=== PATIENT | female | born 1985 ===

== ENCOUNTER 2016-10-03 21:27 | Emergency (ER) | payer SELFPAY ==
[2016-10-03 21:42] VITALS: RESP 20
--- NOTE | 2016-10-03 22:00 | C.PDOC ---
History Of Present Illness 31 year old patient, with a history of migraines, presents to the ED complaining of a sudden onset of a severe frontal headache tonight. Patient states the pain is radiating to her neck. She also complains of nausea, vomiting. She has not had a migraine in two years. This is worse than she's had previously. The light bothers her eyes. Patient denies dizziness, trauma, head injury, numbness or weakness. Time Seen by Provider: 10/03/16 21:46 Chief Complaint (Nursing): Headache History Per: Patient History/Exam Limitations: no limitations Onset/Duration Of Symptoms: Sudden Onset (tonight prior to arrival) Current Symptoms Are (Timing): Still Present Severity: Severe Pain Scale Rating Of: 7 Quality: "Pain" Preceeding Symptoms: Known Migraine Symptoms Associated Symptoms: Photophobia, Nausea, Vomiting Recent travel outside of the [place]: No Additional History Per: Family Past Medical History Reviewed: Historical Data, Nursing Documentation, Vital Signs Vital Signs: Last Vital Signs Temp 98.9 F 10/03/16 23:26 Pulse 74 10/03/16 23:26 Resp 20 10/03/16 23:26 BP 129/52 L 10/03/16 23:26 Pulse Ox 95 10/04/16 00:03 Family History: States: Unknown Family Hx - Social History Hx Alcohol Use: No Hx Substance Use: No - Immunization History Hx Tetanus Toxoid Vaccination: No Hx Influenza Vaccination: No Hx Pneumococcal Vaccination: No Review Of Systems Except As Marked, All Systems Reviewed And Found Negative. Cardiovascular: Positive for: Light Headedness Gastrointestinal: Positive for: Nausea, Vomiting Neurological: Positive for: Headache, Dizziness. Negative for: Weakness, Numbness Physical Exam - Physical Exam Appears: Non-toxic, No Acute Distress Skin: Warm, Dry Head: Atraumatic, Normacephalic Eye(s): bilateral: Normal Inspection, PERRL, EOMI Ear(s): Bilateral: Normal Nose: Normal Oral Mucosa: Moist Throat: Normal Neck: Normal ROM, No Midline Cervical Tenderness, No Paracervical Tenderness, Supple Neurological/Psych: Oriented x3, Normal Speech, Normal Cognition ED Course And Treatment O2 Sat by Pulse Oximetry: 95 Pulse Ox Interpretation: Normal - CT Scan/US Head CT Other Rad Studies (CT/US): Read By Radiologist CT/US Interpretation: No acute findings Progress Note: Plan: -Bettie Toradol. Pt reports moderately improved symptoms , requesting Imitrex prescription, and will follow up with PMD. Return instructions were explained and understood by pt Reassessment Condition: Improved Disposition - Disposition Disposition: HOME/ ROUTINE Disposition Time: 23:47 Condition: STABLE Additional Instructions: Take meds as directed Increase fluids Return to ER if worse Prescriptions: SUMAtriptan [Imitrex] 50 mg PO BID #20 tab Ibuprofen [Motrin] 600 mg PO Q6H #30 tab Instructions: Migraine Headache (ED) Forms: Work Excuse - Clinical Impression Clinical Impression: Migraine headache - PA / LEGAL ADMINISTRATIVE SECRETARY / Resident Statement MD/DO has reviewed & agrees with the documentation as recorded. - Scribe Statement The provider has reviewed the documentation as recorded by the Scribe Alexa Mehta All medical record entries made by the Scribe were at my direction and personally dictated by me. I have reviewed the chart and agree that the record accurately reflects my personal performance of the history, physical exam, medical decision making, and the department course for this patient. I have also personally directed, reviewed, and agree with the discharge instructions and disposition.
[2016-10-03] MEDS ORDERED: Sodium Chloride 0.9% 1,000 ML IV STA (22:07)
--- NOTE | 2016-10-03 22:50 | CT ---
EXAM: CT Head Without Intravenous Contrast. CLINICAL HISTORY: 31 years old, female; Signs and symptoms; Other: Dizziness and vomiting; Additional info: Headache, dizziness and vomiting since tonight TECHNIQUE: Axial computed tomography images of the head/brain without intravenous contrast. This CT exam was performed using one or more of the following dose reduction techniques: automated exposure control, adjustment of the mA and/or kV according to patient size, and/or use of iterative reconstruction technique. EXAM DATE/TIME: 10/03/2016 10:03 PM COMPARISON: No relevant prior studies available. FINDINGS: BRAIN: No significant acute abnormality identified. No acute hemorrhage seen within the brain. No acute extra-axial fluid collections visualized. No evidence of significant mass effect within the brain. Normal thomson-white matter differentiation. VENTRICLES: No evidence of significant hydrocephalus. BONES/JOINTS: No acute fractures or other acute bony abnormality noted. SOFT TISSUES: No acute abnormality of the visualized soft tissues is seen. SINUSES: Visualized paranasal sinuses appear clear. MASTOID AIR CELLS: Mastoid air cells appear clear. IMPRESSION: - No acute findings seen within the brain. - See above for remaining findings.
[2016-10-03 23:29] VITALS: BP 129/52; PULSE 74; TEMP 98.9
[2016-10-03 23:52] VITALS: O2SAT 95
== END 2016-10-04 00:13 | disposition home or self-care (01) ==
LOC: C.ER 21:27
DX: G43.909 Migraine, unspecified, not intractable, without status migrainosus (principal)
CPT/HCPCS: 70450; 96374; 96375; 99285; J1885; J2765; J7040